=== PATIENT | male | born 2000 | race Caucasian/White ===

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

== ENCOUNTER 2020-10-06 21:40 | Emergency (ER) | payer OTHER ==
[~2020-10-06] VITALS: Ht 175.3 cm; Wt 86.0 kg
[~2020-10-06 21:40] MED LIST changes: +CEFD1CAP8 PO; -MAG400TA PO; +MAGN400T35 PO; +ONDA8TAB10 PO; +REGL10TA6 PO; -RIZA10TA4 PO; +RIZA10TA58 PO; +TYLE325T5 PO
[2020-10-07] MEDS ORDERED: AUGM875T28 PO (01:04)
[2020-10-07] MEDS ORDERED: AUGMENTIN 875 MG TAB PO ONE (01:05)
[2020-10-07 01:22] VITALS: BP 137/83
== END 2020-10-07 01:23 | disposition home or self-care (01) ==
LOC: M ED 21:40
DX: H61.22 Impacted cerumen, left ear (principal); R11.2 Nausea with vomiting, unspecified

== ENCOUNTER 2021-05-25 19:21 | Emergency (ER) | payer OTHER ==
[~2021-05-25] VITALS: Ht 175.3 cm; Wt 84.1 kg
[~2021-05-25 19:21] MED LIST changes: +AUGM875T28 PO; -CEFD1CAP8 PO; +CEFD300C41 PO; +ONDA-84 PO; -ONDA8TAB10 PO
[2021-05-26] MEDS ORDERED: KETOROLAC TROMETHAMINE 10 MG TAB PO ONE (07:35)
[2021-05-26 08:19] VITALS: BP 122/70
== END 2021-05-26 08:21 | disposition home or self-care (01) ==
LOC: M ED 19:21
DX: M94.0 Chondrocostal junction syndrome [Tietze] (principal); R07.9 Chest pain, unspecified; R94.31 Abnormal electrocardiogram [ECG] [EKG]

== ENCOUNTER → 2023-11-30 | Outpatient (REF) | payer OTHER ==
[~2023-11-30] MED LIST changes: +CEFD1CAP9 PO; -CEFD300C41 PO
== END ==
LOC: M LAB REF 17:40
PROVIDERS: ATTEND Surgery
DX: D23.4 Other benign neoplasm of skin of scalp and neck (principal)